=== PATIENT | female | born 1975 | race Caucasian/White ===

== ENCOUNTER 2019-07-25 22:54 | Observation (INO) ==
--- NOTE | 2019-07-25 23:06 | Emergency Department Note ---
Disposition Clinical Impression: Chest pain Disposition: Admitted As Inpatient Condition: Good Referrals: Paris Worrell CNP [Primary Care Provider] - Forms: ED Satisfaction Letter Time of Disposition: 01:25 Chest Pain HPI - General Chief Complaint: ED Shortness of Breath/Dyspnea Stated Complaint: shortness of breath Time Seen by Provider: 07/25/19 23:00 Source: patient Limitations: no limitations - History of Present Illness HPI Narrative: 44 year old female who presents today with chest pain and shortness of breath. She states that her to return this evening when she lay down. She feels like the tight squeezing feeling in her left upper chest and does not hurt her shoulder. She describes that as making her shortness of breath occur. She states it feels like her normal angina. She states her initial blood pressure was 90 systolic. She states that she normally has some low blood pressure. She went ahead and took a nitroglycerin which dropped her pressure into the 80s. She states she is continuing to feel chest pain and discomfort. She states that the nitroglycerin did not really help. She states she had a CT LAWSON S stress and the calf within the last year. She no she is a 50% blockage in one of her arteries. She has been seen at [facility] by the group therapy counselor there but is changing to see one of the group therapy counselor there [place] this week. Severity scale (1-10): 8 - Related Data Home Medications Medication Instructions Recorded Confirmed Aspirin [Lo-Dose Aspirin EC] 81 mg PO DAILY 07/14/19 07/25/19 Cyanocobalamin (Vitamin B-12) 1,000 mcg PO DAILY 07/14/19 07/25/19 [Vitamin B-12] Levothyroxine [Synthroid] 25 mcg PO 0630 07/14/19 07/25/19 Montelukast [Singulair] 10 mg PO DAILY 07/14/19 07/25/19 Pantoprazole Sodium [Protonix] 40 mg PO DAILY 07/14/19 07/25/19 Ranolazine [Ranolazine ER] 500 mg PO DAILY 07/14/19 07/25/19 Rosuvastatin Calcium [Crestor] 10 mg PO HS 07/14/19 07/25/19 Vitamin D 50,000 unit PO QWEEK 07/14/19 07/25/19 Allergies Allergy/AdvReac Type Severity Reaction Status Date / Time dicyclomine [From Bentyl] Allergy Swelling Verified 07/25/19 23:01 of Lip/Tongue/Throat Review of Systems: All other systems are negative except as noted/marked Chart generated with voice recognition software Nursing notes reviewed Old records reviewed Chest Pain PMH - Past Medical History Medical history: Reports: coronary artery disease, thyroid disease, other Psychiatric history: Reports: no psych history [employer] history: Reports: bilateral tubal ligation - Social History Smoking Status: Current every day smoker Alcohol use: Reports: none Drug use: Reports: none Physical Exam General: Mild distress VSS Head: normocephalic, atraumatic Eyes: EOMI, PERRLA mouth: moist mucous membranes Neck: NO CLA, Supple Chest wall: normal rise, no crepitus, no deformity noted Lungs: moving air well, no distress Heart: RRR, Abd: soft, nontender, BS normal : deferred MSK: strength equal in all four extremities Ext: moves all four extremities, no obvious deformities Skin: cap refill normal, warm, dry neuro : CN2-12 grossly intact, A&Ox3 Psych: normal affect, not anxious - General Limitations: no limitations General appearance: alert Course Vital Signs Temperature 97.6 F 07/25/19 22:54 Pulse Rate 62 07/25/19 22:54 Respiratory Rate 17 07/25/19 22:54 Blood Pressure 99/78 07/25/19 22:54 O2 Sat by Pulse Oximetry 99 07/25/19 22:54 Temperature 97.6 F 07/25/19 22:54 Pulse Rate 63 07/26/19 01:00 Respiratory Rate 27 07/26/19 01:00 Blood Pressure 100/66 07/26/19 01:00 O2 Sat by Pulse Oximetry 96 07/26/19 01:00 Oxygen Delivery Oxygen Delivery Room Air Chest Pain - MDM Narrative Medical decision making narrative: 44-year-old female who presents today with chest pain. She is a history of angina bradycardia hypotension. She has a pacemaker already. She sees cardiology regularly at [facility], switching to an [place] group therapy counselor in the upcoming weeks. She states that today she started having some angina and shortness of breath and got concerned and wanted to come in for evaluation. EKG 2 by EMS and S is negative her troponin 2 is negative. I spoke with Dr. Humza will keeping her for an ACS rule out. He is comfortable with this plan. Patient's comfortable being kept overnight on a monitor. - Medical Records Medical records reviewed: Yes I reviewed the patient's medical records. - Lab Data Lab results reviewed: Yes I reviewed the patient's lab results. Result diagrams: 07/25/19 23:22 07/25/19 23:22 Lab Results 07/25/19 07/25/19 07/25/19 Range/Units 00:17 00:17 23:22 WBC (4.3-11.1) K/mcL RBC (3.82-4.97) M/mcL Hgb (11.5-15.4) g/dL Hct (35.3-44.9) % MCV (83.0-100.0) fL MCH (28.0-33.3) pg MCHC (31.6-35.5) g/dL RDW (11.5-14.5) % Plt Count (140-400) K/mcL MPV (9.4-12.4) fL Immature Gran % (0-4) % Seg Neutrophils % % Lymphocytes % % Monocytes % % Eosinophils % % Basophils % % Neutrophils # (1.6-8.9) K/mcL Lymphocytes # (0.6-4.6) K/mcL Monocytes # (0.0-1.3) K/mcL Eosinophils # (0.0-0.6) K/mcL Basophils # (0.0-0.2) K/mcL PT 11.3 (9.4-12.1) Seconds INR 1.0 APTT 29.7 (26.0-36.0) Seconds Sodium (136-145) mEq/L Potassium (3.5-5.1) mEq/L Chloride (98-107) mEq/L Carbon Dioxide (23-29) mEq/L BUN (6-20) mg/dL Creatinine (0.60-1.20) mg/dL Est GFR ( Amer) (> 60) Est GFR (Non-Af Amer) (> 60) BUN/Creatinine Ratio (6-26) Glucose (70-105) mg/dL Calculated Osmolality (280-300) Calcium (8.6-10.3) mg/dL Magnesium (1.6-2.6) mg/dL Troponin I (< 0.04) ng/mL Urine Color Yellow (Yellow) Urine Clarity Clear (Clear) Urine pH 6.5 (5.0-8.0) pH Units Ur Specific [place] 1.015 (1.010-1.025) Urine Protein Negative (Neg-Trace) mg/dL Urine Glucose (UA) Normal (Normal) mg/dL Urine Ketones Negative (Negative) mg/dL Urine Blood Negative (Negative) Urine Nitrite Negative (Negative) Urine Bilirubin Negative (Negative) Urine Urobilinogen Normal (Normal) mg/dL Ur Leukocyte Esterase Negative (Negative) Ur Culture Indicated? NO (NO) Urine Opiates Screen Negative (Ybsser=864) ng/mL Ur Buprenorphine Scrn Negative (Cutoff=5) ng/mL Ur Oxycodone Screen Negative (Cutoff= 100) ng/mL Ur Barbiturates Screen Negative (Latuwu=512) ng/mL Ur Phencyclidine Scrn Negative (Cutoff=25) ng/mL Ur Amphetamines Screen Negative (Ievxsw=2468) ng/mL U Benzodiazepines Scrn Negative (Qllxrr=439) ng/mL Urine Cocaine Screen Negative (Cutoff= 300) ng/mL U Marijuana (THC) Screen Negative (Cutoff = 50) ng/mL Ur Drug Screen Interp See Below 07/25/19 07/25/19 07/25/19 Range/Units 23:22 23:22 23:22 WBC 8.2 (4.3-11.1) K/mcL RBC 3.23 L (3.82-4.97) M/mcL Hgb 10.6 L (11.5-15.4) g/dL Hct 30.6 L (35.3-44.9) % MCV 94.7 (83.0-100.0) fL MCH 32.8 (28.0-33.3) pg MCHC 34.6 (31.6-35.5) g/dL RDW 12.6 (11.5-14.5) % Plt Count 138 L (140-400) K/mcL MPV 12.4 (9.4-12.4) fL Immature Gran % 0.4 (0-4) % Seg Neutrophils % 50.3 % Lymphocytes % 40.6 % Monocytes % 7.0 % Eosinophils % 1.1 % Basophils % 0.6 % Neutrophils # 4.1 (1.6-8.9) K/mcL Lymphocytes # 3.3 (0.6-4.6) K/mcL Monocytes # 0.6 (0.0-1.3) K/mcL Eosinophils # 0.1 (0.0-0.6) K/mcL Basophils # 0.1 (0.0-0.2) K/mcL PT (9.4-12.1) Seconds INR APTT (26.0-36.0) Seconds Sodium 141 (136-145) mEq/L Potassium 3.5 (3.5-5.1) mEq/L Chloride 108 H (98-107) mEq/L Carbon Dioxide 26 (23-29) mEq/L BUN 8 (6-20) mg/dL Creatinine 0.75 (0.60-1.20) mg/dL Est GFR ( Amer) > 60 (> 60) Est GFR (Non-Af Amer) > 60 (> 60) BUN/Creatinine Ratio 11 (6-26) Glucose 92 (70-105) mg/dL Calculated Osmolality 290 (280-300) Calcium 8.4 L (8.6-10.3) mg/dL Magnesium 1.8 (1.6-2.6) mg/dL Troponin I < 0.03 (< 0.04) ng/mL Urine Color (Yellow) Urine Clarity (Clear) Urine pH (5.0-8.0) pH Units Ur Specific [place] (1.010-1.025) Urine Protein (Neg-Trace) mg/dL Urine Glucose (UA) (Normal) mg/dL Urine Ketones (Negative) mg/dL Urine Blood (Negative) Urine Nitrite (Negative) Urine Bilirubin (Negative) Urine Urobilinogen (Normal) mg/dL Ur Leukocyte Esterase (Negative) Ur Culture Indicated? (NO) Urine Opiates Screen (Ngcyso=057) ng/mL Ur Buprenorphine Scrn (Cutoff=5) ng/mL Ur Oxycodone Screen (Cutoff= 100) ng/mL Ur Barbiturates Screen (Pgwlsq=950) ng/mL Ur Phencyclidine Scrn (Cutoff=25) ng/mL Ur Amphetamines Screen (Nkoxcr=1941) ng/mL U Benzodiazepines Scrn (Yzwfre=805) ng/mL Urine Cocaine Screen (Cutoff= 300) ng/mL U Marijuana (THC) Screen (Cutoff = 50) ng/mL Ur Drug Screen Interp 09/19/19 Range/Units 00:43 WBC (4.3-11.1) K/mcL RBC (3.82-4.97) M/mcL Hgb (11.5-15.4) g/dL Hct (35.3-44.9) % MCV (83.0-100.0) fL MCH (28.0-33.3) pg MCHC (31.6-35.5) g/dL RDW (11.5-14.5) % Plt Count (140-400) K/mcL MPV (9.4-12.4) fL Immature Gran % (0-4) % Seg Neutrophils % % Lymphocytes % % Monocytes % % Eosinophils % % Basophils % % Neutrophils # (1.6-8.9) K/mcL Lymphocytes # (0.6-4.6) K/mcL Monocytes # (0.0-1.3) K/mcL Eosinophils # (0.0-0.6) K/mcL Basophils # (0.0-0.2) K/mcL PT (9.4-12.1) Seconds INR APTT (26.0-36.0) Seconds Sodium (136-145) mEq/L Potassium (3.5-5.1) mEq/L Chloride (98-107) mEq/L Carbon Dioxide (23-29) mEq/L BUN (6-20) mg/dL Creatinine (0.60-1.20) mg/dL Est GFR ( Amer) (> 60) Est GFR (Non-Af Amer) (> 60) BUN/Creatinine Ratio (6-26) Glucose (70-105) mg/dL Calculated Osmolality (280-300) Calcium (8.6-10.3) mg/dL Magnesium (1.6-2.6) mg/dL Troponin I < 0.03 (< 0.04) ng/mL Urine Color (Yellow) Urine Clarity (Clear) Urine pH (5.0-8.0) pH Units Ur Specific [place] (1.010-1.025) Urine Protein (Neg-Trace) mg/dL Urine Glucose (UA) (Normal) mg/dL Urine Ketones (Negative) mg/dL Urine Blood (Negative) Urine Nitrite (Negative) Urine Bilirubin (Negative) Urine Urobilinogen (Normal) mg/dL Ur Leukocyte Esterase (Negative) Ur Culture Indicated? (NO) Urine Opiates Screen (Vkbyil=344) ng/mL Ur Buprenorphine Scrn (Cutoff=5) ng/mL Ur Oxycodone Screen (Cutoff= 100) ng/mL Ur Barbiturates Screen (Jwuonf=321) ng/mL Ur Phencyclidine Scrn (Cutoff=25) ng/mL Ur Amphetamines Screen (Kunzby=5457) ng/mL U Benzodiazepines Scrn (Zubyew=662) ng/mL Urine Cocaine Screen (Cutoff= 300) ng/mL U Marijuana (THC) Screen (Cutoff = 50) ng/mL Ur Drug Screen Interp - Radiology Data Radiology results reviewed: Yes I reviewed the patient's radiology results. - EKG Data EKG attestation: Yes I reviewed and interpreted this EKG. EKG results narrative: EKG interpreted by myself as a rate of 61, qtc 450, paced rhythm Heart Score - Score History: Slightly Suspicious EKG: Non Specific repolarisation Disturbance Age: 45-65 Risk Factors: 1-2 risk factors Troponin: Less than normal limit HEART Score Total: 3
[2019-07-25] MEDS ORDERED: 0.9 % Sodium Chloride 1,000 ML IVC ONE (23:40)
[2019-07-25 23:48] LABS: Basophils # 0.1 K/mcL (0.0-0.2); Basophils % 0.6 %; Eosinophils # 0.1 K/mcL (0.0-0.6); Eosinophils % 1.1 %; Hematocrit 30.6 % (35.3-44.9); Hemoglobin 10.6 g/dL (11.5-15.4); Immature Granulocytes % 0.4 % (0-4); Lymphocytes # 3.3 K/mcL (0.6-4.6); Lymphocytes % 40.6 %; Mean Corpuscular HGB Conc 34.6 g/dL (31.6-35.5); Mean Corpuscular Hemoglobin 32.8 pg (28.0-33.3); Mean Corpuscular Volume 94.7 fL (83.0-100.0); Mean Platelet Volume 12.4 fL (9.4-12.4); Monocytes # 0.6 K/mcL (0.0-1.3); Neutrophils # 4.1 K/mcL (1.6-8.9); Platelet Count 138 K/mcL (140-400); Red Blood Count 3.23 M/mcL (3.82-4.97); Red Cell Distribution Width 12.6 % (11.5-14.5); Segmented Neutrophils % 50.3 %; White Blood Count 8.2 K/mcL (4.3-11.1)
[2019-07-25 23:58] LABS: Prothrombin Time 11.3 Seconds (9.4-12.1)
[2019-07-26 00:01] LABS: Activated Partial Thrombo Time 29.7 Seconds (26.0-36.0)
[2019-07-26 00:10] LABS: BUN/Creatinine Ratio 11 (6-26); Blood Urea Nitrogen 8 mg/dL (6-20); Calcium 8.4 mg/dL (8.6-10.3); Carbon Dioxide 26 mEq/L (23-29); Chloride 108 mEq/L (98-107); Glucose 92 mg/dL (70-105); Osmolality,Calculated 290 (280-300); Potassium 3.5 mEq/L (3.5-5.1); Sodium 141 mEq/L (136-145); Troponin I < 0.03 ng/mL (< 0.04); eGFR For African Americans > 60 (> 60); eGFR For Non-African Americans > 60 (> 60)
[2019-07-26 00:22] LABS: Bilirubin,Urine Negative (Negative); Blood,Urine Negative (Negative); Clarity,Urine Clear (Clear); Color,Urine Yellow (Yellow); Glucose,Urine (UA) Normal (Normal); Ketones,Urine Negative (Negative); Leukocyte Esterase,Urine Negative (Negative); Nitrite,Urine Negative (Negative); PH,Urine 6.5 pH Units (5.0-8.0); Protein,Urine Negative (Neg-Trace); Specific Gravity,Urine 1.015 (1.010-1.025); Urobilinogen,Urine Normal (Normal)
[2019-07-26 00:32] LABS: Amphetamine Screen,Urine Negative ng/mL (Cutoff=1000); Barbiturate Screen,Urine Negative ng/mL (Cutoff=200); Benzodiazepines Screen,Urine Negative ng/mL (Cutoff=200); Cannabinoid Screen,Urine Negative ng/mL (Cutoff = 50); Cocaine Screen,Urine Negative ng/mL (Cutoff= 300); Opiate Screen,Urine Negative ng/mL (Cutoff=300); Phencyclidine Screen,Urine Negative ng/mL (Cutoff=25)
[2019-07-26] MEDS ORDERED: *HR* FentaNYL (PF) 100 MCG/2 ML VIAL IVP ONE (01:21)
[2019-07-26] MEDS ORDERED: Naloxone 0.4 MG/ML INJ IVP PRN (01:26)
[2019-07-26] MEDS ORDERED: Mag Hydrox/Al Hydrox/Simeth 30 ML UDC PO PRN (01:26)
[2019-07-26] MEDS ORDERED: MOM Conc 10 ML UD.LIQ PO PRN (01:26)
[2019-07-26] MEDS ORDERED: Ondansetron 4 MG/2 ML VIAL IVP PRN (01:26)
[2019-07-26] MEDS ORDERED: Acetaminophen 325 MG TABLET PO PRN (01:26)
[2019-07-26] MEDS: traMADol 50 MG TABLET PO PRN ×2 (02:13→09:12)
[2019-07-26] MEDS ORDERED: Levothyroxine 25 MCG TABLET PO SCH (06:30)
[2019-07-26] MEDS ORDERED: Ranolazine 500 MG TAB.ER.12H PO SCH (09:00)
[2019-07-26] MEDS ORDERED: Aspirin Enteric Coated 81 MG Tablet PO SCH (09:00)
[2019-07-26 10:33] VITALS: BP 97/62
--- NOTE | 2019-07-26 11:38 | Internal Med History&Physical ---
Date of Encounter: 07/26/19 Time of Encounter: 11:10 Assessment and Plan (1) Chest pain Current visit: Yes Status: Acute Repeat cardiac enzymes were ordered through emergency room. Doubt myocardial ischemia from history and physical. Qualifiers: Chest pain type: unspecified Qualified Code(s): R07.9 - Chest pain, unspecified (2) Anemia Current visit: Yes Status: Acute Hemoglobin was normal at 12.6 on 07/17/2019. Her PCP can monitor and do further workup as needed. Qualifiers: Anemia type: unspecified type Qualified Code(s): D64.9 - Anemia, unspecified (3) Tobacco use Current visit: Yes Status: Acute Room air oximetry will be checked on 6 minute walk prior to discharge. Internal Medicine - H&P: HPI Chief complaint: Chest pain, dyspnea Admitted From: Emergency Dept Plans for Post Hospital Care: Home History of present illness: Ms. Nichols is a 44 year old female who came to emergency room stating she had sudden onset of chest discomfort while at leisure approximately 9:30 PM. She took 2 nitroglycerin pills without significant relief. She came to emergency room and was evaluated and was admitted to [facility] for ongoing care needs. She states she has very minimal residual chest discomfort at this time. She reports nearly continuous low-level discomfort in her chest similar to what she has at present time. She reports a previous episode of more severe pain April 2019 at time of her pacemaker insertion for sick sinus syndrome. She gets dyspnea on exertion but no chest pain. She denies AL heart failure DVT or pulmonary embolus. She had a heart catheter at [facility] January 2018 which showed 50% stenosis in the LMCA and lesser stenosis in other vessels per her report. I do not have the actual cath report in hand. She reports a cardiac CTA January resulted in no further intervention. Past Med Surg Social Fam HX - Past Medical History Medical history: coronary artery disease, thyroid disease, other Additional medical history: SSS WITH PACEMAKER PLACED, CYSTS ON KIDNEYS. Psychiatric history: no psych history - Past Surgical History Surgical History: , hysterectomy Additional surgical history: ORIF LT ARM; tubal; ovarian cyst removal - Social History Smoking Status: Current every day smoker Packs per day: 0.25 Smokeless Tobacco Status: No Alcohol use: none Drug use: none Internal Medicine - H&P: Meds Aspirin [Lo-Dose Aspirin EC] 81 mg PO DAILY 07/14/19 [History] Cyanocobalamin (Vitamin B-12) [Vitamin B-12] 1,000 mcg PO DAILY 07/14/19 [History] Levothyroxine [Synthroid] 25 mcg PO 0630 07/14/19 [History] Montelukast [Singulair] 10 mg PO DAILY 07/14/19 [History] Pantoprazole Sodium [Protonix] 40 mg PO DAILY 07/14/19 [History] Ranolazine [Ranolazine ER] 500 mg PO DAILY 07/14/19 [History] Rosuvastatin Calcium [Crestor] 10 mg PO HS 07/14/19 [History] Vitamin D 50,000 unit PO QWEEK 07/14/19 [History] Allergy/AdvReac Type Severity Reaction Status Date / Time dicyclomine [From Bentyl] Allergy Swelling Verified 07/25/19 23:01 of Lip/Tongue/Throat All Systems PM: A 10-system review of systems was performed and is negative for pertinent findings except as documented above in the HPI. Review of systems: Gen.: She states her weight has been stable for several months Cardiovascular: As per history of present illness Respiratory: She has smoked since age 12 never exceeding 1 pack per day. She has not had PFTs and denies chronic lung disease. She does not use home oxygen. GI: She denies disorders of her liver gallbladder or exocrine pancreas : She has had right ovarian cyst documented. She has a left adrenal adenoma. She has had hysterectomy. Neurologic: She denies large distribution strokes or seizures. Endocrine: She denies diabetes. She has hypothyroidism and hyperlipidemia. Hematology/oncology: She has mild anemia. She denies internal malignancies or other blood disorders. Psychiatric: She has feelings of anxiety at times but does not take medication. She denies depression or other mental health issues. [place] skeletal: She had left arm fracture in the past with surgical repair. She denies other bone joint or muscle disorders. - Constitutional Vitals: Temp Pulse Resp BP Pulse Ox 97.8 F 66 19 97/62 94 07/26/19 10:28 07/26/19 10:28 07/26/19 10:28 07/26/19 10:28 07/26/19 10:28 Exam: Gen.: She is a well-developed well-nourished female resting comfortably in bed who appears in no acute distress HEENT: Head is atraumatic and normocephalic. Eyes: EOMI. There is no scleral icterus. Mouth: Mucosa is moist. Neck: Supple and nontender. There is no thyromegaly or adenopathy noted. Heart: Regular without murmurs gallops or ectopics Lungs: No wheezes or crackles are heard. Abdomen: Soft and nontender. No masses or guarding are noted. Chest: She has nontender chest wall to light compression. Extremities: There is no cyanosis edema or clubbing noted. Dorsalis pedis and posterior tibial pulses are 1-2 over 2 bilaterally. Neurologic: Mental status: She is talkative and a good historian. Cranial nerves: Smile is symmetric. Forehead wrinkles bilaterally. Tongue protrudes midline. EOMI. Motor: She cannot pronate the left arm well due to previous injury/surgery but there is no pronator drift. Cerebellar: Finger to nose is intact bilaterally. Skin: Warm and dry Internal Med - H&P Results - Labs CBC & Chem 7: 07/25/19 23:22 07/25/19 23:22 Labs: Short CBC 07/25/19 Range/Units 23:22 WBC 8.2 (4.3-11.1) K/mcL Hgb 10.6 L (11.5-15.4) g/dL Hct 30.6 L (35.3-44.9) % Plt Count 138 L (140-400) K/mcL Neutrophils # 4.1 (1.6-8.9) K/mcL BMP 07/25/19 23:22 Sodium 141 Potassium 3.5 Chloride 108 H Carbon Dioxide 26 BUN 8 Creatinine 0.75 Glucose 92 Calcium 8.4 L Cardiac Enzymes 07/25/19 07/26/19 07/26/19 Range/Units 23:22 00:43 05:52 Troponin I < 0.03 < 0.03 < 0.03 (< 0.04) ng/mL 07/26/19 Range/Units 07:57 Troponin I < 0.03 (< 0.04) ng/mL Urine 07/25/19 Range/Units 00:17 Urine Color Yellow (Yellow) Urine Clarity Clear (Clear) Urine pH 6.5 (5.0-8.0) pH Units Ur Specific [place] 1.015 (1.010-1.025) Urine Protein Negative (Neg-Trace) mg/dL Urine Glucose (UA) Normal (Normal) mg/dL - Impressions ITS Impressions Chest X-Ray 07/26/19 00:14 IMPRESSION: No acute findings. D/ / Danny Aguillon / Danny Aguillon Interpreting Provider: Danny Aguillon
--- NOTE | 2019-07-26 11:48 | Discharge Summary ---
Date of Encounter: 07/26/19 Time of Encounter: 11:10 - Discharge Diagnosis (1) Chest pain Priority: Primary Status: Acute Qualifiers: Chest pain type: unspecified Qualified Code(s): R07.9 - Chest pain, unspecified (2) Anemia Priority: Secondary Status: Acute Qualifiers: Anemia type: unspecified type Qualified Code(s): D64.9 - Anemia, unspecified (3) Tobacco use Priority: Secondary Status: Acute Hospital course: Ms. Nichols is a 44 year old female who came to emergency room stating she had sudden onset of chest discomfort while at leisure approximately 9:30 PM. She took 2 nitroglycerin pills without significant relief. She came to emergency room and was evaluated and was admitted to [facility] for ongoing care needs. Initial orders were written by the emergency room physician. I saw her on July 26 and performed a history physical and discharge. Repeat cardiac enzymes showed no evidence of myocardial damage. When I saw her I did not think the chest pain was likely myocardial ischemic origin. The etiology of the pain was not determined with certainty. When I saw her she stated she felt back to her baseline and wished to be discharged which I felt was reasonable. She will follow with her PCP within 1 week. She reports she has a cardiology appointment tomorrow for pacemaker evaluation. I told her that her PCP could follow up on her mild anemia. I encouraged her become a nonsmoker. Room air oximetry will be checked on 6 minute walk prior to discharge. - Time Spent with Patient Total time spent providing and/or coordinating discharge services: - Discharge Medications Prescriptions: Continued Cyanocobalamin (Vitamin B-12) [Vitamin B-12] 1,000 mcg PO DAILY Vitamin D 50,000 unit PO QWEEK Montelukast [Singulair] 10 mg PO DAILY Levothyroxine [Synthroid] 25 mcg PO 0630 Pantoprazole Sodium [Protonix] 40 mg PO DAILY Rosuvastatin Calcium [Crestor] 10 mg PO HS Aspirin [Lo-Dose Aspirin EC] 81 mg PO DAILY Ranolazine [Ranolazine ER] 500 mg PO DAILY Home Medications: Aspirin [Lo-Dose Aspirin EC] 81 mg PO DAILY 07/14/19 [History] Cyanocobalamin (Vitamin B-12) [Vitamin B-12] 1,000 mcg PO DAILY 07/14/19 [History] Levothyroxine [Synthroid] 25 mcg PO 0630 07/14/19 [History] Montelukast [Singulair] 10 mg PO DAILY 07/14/19 [History] Pantoprazole Sodium [Protonix] 40 mg PO DAILY 07/14/19 [History] Ranolazine [Ranolazine ER] 500 mg PO DAILY 07/14/19 [History] Rosuvastatin Calcium [Crestor] 10 mg PO HS 07/14/19 [History] Vitamin D 50,000 unit PO QWEEK 07/14/19 [History] Allergies/Adverse Reactions: Allergy/AdvReac Type Severity Reaction Status Date / Time dicyclomine [From Bentyl] Allergy Swelling Verified 07/25/19 23:01 of Lip/Tongue/Throat Date of admission: 07/26/19 01:33 Primary care physician: Paris Worrell CNP - Constitutional Vitals: Temp Pulse Resp BP Pulse Ox 97.8 F 66 19 97/62 94 07/26/19 10:28 07/26/19 10:28 07/26/19 10:28 07/26/19 10:28 07/26/19 10:28 - Patient Status Disposition: Home, Self-Care Condition: Good - Discharge Instructions Follow Up With: Paris Worrell CNP [Primary Care Provider] - 1 week - Diet and Activity Activity: resume usual activities as tolerated Diet: advance to your usual diet
--- NOTE | 2019-07-26 17:42 | Electrocardiograph Report ---
[place] [id number] Test Date: 2019-07-25 Pat Name: Sayra Nichols Department: EDP-14 Room: [facility] Gender: F Palliative Senior Np: : 1975 Requested By: Connie Richardson Order Number: [id number] Reading MD: Perry Charlton Measurements Intervals [place] Rate: 61 P: OK: 197 QRS: 80 QRSD: 87 T: 58 QT: 446 QTc: 450 Interpretive Statements Atrial-paced rhythm Low voltage, precordial leads Electronically Signed On 07-26-2019 17:40:20 EDT by Perry Charlton
== END 2019-07-26 12:39 | disposition home or self-care (01) ==
LOC: EMEROOPIK 22:54 → INPPIK 22:54
PROVIDERS: ADMIT Internal Medicine; ATTEND Internal Medicine